=== PATIENT | female | born 1940 | race Caucasian/White ===

== ENCOUNTER 2018-05-03 17:01 | Emergency (ER) | payer MEDICARE ==
[~2018-05-03] VITALS: Ht 152.4 cm; Wt 50.0 kg
[2018-05-03 17:04] VITALS: Ht 152.4 cm; Wt 50.0 kg
[2018-05-03] MEDS ORDERED: PEPCID20 MG PO (17:06)
[2018-05-03] MEDS ORDERED: ASPIRIN EC81 M1 (17:06)
[2018-05-03] MEDS ORDERED: COREG 3.1253.125 MG PO (17:06)
[2018-05-03] MEDS ORDERED: LYRICA25 MG PO (17:06)
[2018-05-03] MEDS ORDERED: LIPITOR40 MG PO (17:06)
[2018-05-03] MEDS ORDERED: ALENDRONATE SOD70 MG PO (17:07)
[2018-05-03] MEDS ORDERED: COZAAR50 MG PO (17:07)
[2018-05-03] MEDS ORDERED: VITAMIN D250000 UNIT (17:08)
[2018-05-03] MEDS ORDERED: SUPER B COMPLE150 MG (17:08)
[2018-05-03] MEDS ORDERED: CALCIUM 600+D T1 TA1 PO (17:08)
[2018-05-03] MEDS ORDERED: FEXOFENADINE H180 MG PO (17:09)
[2018-05-03 18:14] LABS: BASOPHILS 0.4 % (0-2); EOSINOPHILS 2.7 % (0-7); HEMATOCRIT 35.3 % (36.0-48.0); HEMOGLOBIN 11.6 g/dL (12-16); IMMATURE GRANULOCYTES 0.2 % (0-5); LYMPHOCYTES 24.7 % (15-50); MCH 29.4 pg (26.0-34.0); MCHC 32.9 g/dL (31.0-37.0); MCV 89.4 fL (80.0-100.0); MEAN PLATELET VOLUME 9.8 fL (7.4-10.4); MONOCYTES 7.1 % (2-11); NEUTROPHILS 64.9 % (40-80); PLATELET COUNT 168 10x3/uL (130-400); RBC 3.95 10x6/uL (4.00-5.40); RDW 14.5 % (11.5-14.5); WBC 4.8 10x3/uL (4.8-10.8)
[2018-05-03 18:42] LABS: ALBUMIN 3.5 g/dL (3.4-5.0); ALKALINE PHOSPHATASE 81 U/L (46-116); ALT (SGPT) 25 U/L (10-68); BILIRUBIN - TOTAL 0.32 mg/dL (0.2-1.3); CALC OSMOLALITY 280 mosm/kg (275-300); CALCIUM 8.2 mg/dL (8.5-10.1); CARBON DIOXIDE 26.1 mmol/L (21.0-32.0); CHLORIDE - SERUM 106 mmol/L (98-107); CREATININE - SERUM 0.7 mg/dL (0.6-1.3); GLUCOSE 122 mg/dL (74-106); POTASSIUM - SERUM 3.6 mmol/L (3.5-5.1); PROTEIN - SERUM 6.7 g/dL (6.4-8.2); SODIUM 141 mmol/L (136-145); UREA NITROGEN 10 mg/dL (7-18); eGFR NON AFRICAN AMERICAN 86 mL/min (90-120)
[2018-05-03 18:52] LABS: CKMB 0.8 U/L (0.0-3.6)
[2018-05-03 18:53] LABS: TROPONIN-I < 0.017 ng/mL (0.000-0.060)
[2018-05-03 19:53] LABS: APPEARANCE CLEAR (CLEAR); BILIRUBIN NEGATIVE (NEGATIVE); COLOR YELLOW (YELLOW); GLUCOSE NEGATIVE (NEGATIVE); KETONE NEGATIVE (NEGATIVE); NITRITE NEGATIVE (NEGATIVE); PROTEIN NEGATIVE (NEGATIVE); UROBILINOGEN NORMAL (NORMAL)
[2018-05-03 19:56] LABS: BACTERIA FEW /hpf (NONE SEEN); EPITHELIAL CELLS 0-5 /hpf (0-5); RED CELLS - URINE 0-5 /hpf (0-5)
[2018-05-03] MEDS ORDERED: CIPRO500 MG PO (20:35)
[2018-05-03 21:12] VITALS: BP 162/74
== END 2018-05-03 21:13 | disposition home or self-care (01) ==
LOC: D.ER 17:01
PROVIDERS: Family Medicine
DX: N39.0 Urinary tract infection, site not specified (principal); G40.909 Epilepsy, unspecified, not intractable, without status epilepticus; I10 Essential (primary) hypertension; K21.9 Gastro-esophageal reflux disease without esophagitis